=== PATIENT | male | born 1970 | race African-American/Black ===

== ENCOUNTER 2016-11-30 00:12 | Emergency (ER) | payer SELFPAY ==
[~2016-11-30] VITALS: Ht 182.9 cm; Wt 104.3 kg
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
[2016-11-30] MEDS ORDERED: OXYCODONE/APAP 5/325 TABLET. PO ONE (01:00)
[2016-11-30] MEDS ORDERED: DIPHTH,PERTUSS(ACELL),TET TOX 0.5 ML DISP.SYRIN. VAX IM ONE (01:00)
[2016-11-30] MEDS ORDERED: CEPH-264 PO (01:28)
[2016-11-30] MEDS ORDERED: OXYC-323 PO (01:28)
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
[2016-11-30 01:30] VITALS: BP 117/80
== END 2016-11-30 01:30 | disposition home or self-care (01) ==
LOC: EEVIPCON 00:12 → ER 00:12
DX: S01.01XA Laceration without foreign body of scalp, initial encounter (principal); S00.81XA Abrasion of other part of head, initial encounter; F17.200 Nicotine dependence, unspecified, uncomplicated; F12.10 Cannabis abuse, uncomplicated; Y08.89XA Assault by other specified means, initial encounter; Y93.89 Activity, other specified; Y92.89 Other specified places as the place of occurrence of the external cause; Y99.8 Other external cause status
CPT/HCPCS: 12002; 70450; 72125; 90471; 90715; 99284-25

== ENCOUNTER 2016-12-11 17:32 | Emergency (ER) | payer SELFPAY ==
[~2016-12-11] VITALS: Ht 188 cm; Wt 102.1 kg
[~2016-12-11 17:32] MED LIST: CEPH-264 PO; OXYC-323 PO
[2016-12-11 17:53] VITALS: BP 119/73
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
== END 2016-12-11 18:59 | disposition home or self-care (01) ==
LOC: ER 17:32
DX: S01.01XD Laceration without foreign body of scalp, subsequent encounter (principal); F17.210 Nicotine dependence, cigarettes, uncomplicated; X58.XXXD Exposure to other specified factors, subsequent encounter; Y92.89 Other specified places as the place of occurrence of the external cause; Y99.8 Other external cause status
CPT/HCPCS: 99281